=== PATIENT | female | born 1975 | race Caucasian/White ===

== ENCOUNTER 2017-10-09 23:30 | Emergency (ER) | payer MEDICARE, OTHER ==
[2017-10-10] MEDS ORDERED: HALOPERIDOL 5 MG TABLET PO ONE (00:03)
[2017-10-10] MEDS ORDERED: ACETAMINOPHEN 325 MG TABLET PO ONE (00:06)
--- NOTE | 2017-10-10 00:06 | ER Document Report ---
ED General - General Chief Complaint: Anxiety Stated Complaint: ANXIETY ATTACK Time Seen by Provider: 10/09/17 23:34 Notes: Patient is a 41-year-old female with a past medical history of bipolar and depression as well as panic attacks who does present in the custody of police after apparently having a panic attack during the process of her arrest. The patient states that she took alprazolam 2 mg after onset of the panic attack but it has not resolved her symptoms. She states that the symptoms were triggered by the rough nature with which the police detained her. She is complaining of pain to her bilateral upper biceps area where apparently the police grabbed her arms during the arrest. She denies any additional trauma. She states that when she was in the back of the Car she felt suicidal but notes that this feeling has abated at this time. She denies any additional acute medical or traumatic concerns TRAVEL OUTSIDE OF THE [place] IN LAST 30 DAYS: No - Related Data Allergies/Adverse Reactions: codeine [Codeine] Allergy (Verified 08/03/14 04:37) Penicillins Allergy (Verified 08/03/14 04:37) morphine [Morphine] Adverse Reaction (Verified 08/03/14 04:37) Past Medical History - General Information source: Patient - Social History Smoking Status: Never Smoker Frequency of alcohol use: None Drug Abuse: None Lives with: Spouse/Significant other Family History: Reviewed & Not Pertinent, Other - Possible onto and grandmother with DVT Skin Medical History: Denies Hx MRSA Psychiatric Medical History: Reports: Hx Bipolar Disorder, Hx Depression Past Surgical History: Reports: Hx Hysterectomy - Immunizations Hx Diphtheria, Pertussis, Tetanus Vaccination: Yes Review of Systems - Review of Systems Notes: Constitutional: Negative for fever. HENT: Negative for sore throat. Eyes: Negative for visual changes. Cardiovascular: Negative for chest pain. Respiratory: Negative for shortness of breath. Gastrointestinal: Negative for abdominal pain, vomiting or diarrhea. Genitourinary: Negative for dysuria. Musculoskeletal: Negative for back pain. Skin: Negative for rash. Neurological: Negative for headaches, weakness or numbness. 10 point ROS negative except as marked above and in HPI. Physical Exam - Vital signs Vitals: Resp 24 H 10/09/17 23:48 Interpretation: Normal Notes: PHYSICAL EXAMINATION: GENERAL: Anxious, tearful HEAD: Atraumatic, normocephalic. EYES: Pupils equal round and reactive to light, extraocular movements intact, sclera anicteric, conjunctiva are normal. ENT: nares patent, no oral pharyngeal trauma. No hemotympanum, no Mackenzie's sign , no raccoon eyes. NECK: No midline cervical spine tenderness. Patient able to move their head to 45 bilaterally without any discomfort. LUNGS: Breath sounds clear to auscultation bilaterally and equal. No wheezes rales or rhonchi. HEART: Regular rate and rhythm without murmurs. CHEST WALL: No ecchymosis over the chest wall. ABDOMEN: Soft, nontender, normoactive bowel sounds. No guarding, no rebound. No abdominal bruit EXTREMITIES: Normal range of motion, no pitting or edema. No long bone deformities. BACK: No midline spinal tenderness, step-offs, or deformities. NEUROLOGICAL: Face symmetric. Tongue protrudes midline. Extraocular motions intact. Pupils are 2 mm and equally reactive. Normal speech, normal gait. 5 out of 5 strength in both the distal and proximal upper and lower extremities bilaterally. Sensation is grossly intact throughout. Finger to nose testing normal. Pronator drift normal. PSYCH: anxious, tearful SKIN: Warm, Dry, normal turgor, traumatic ecchymosis of the bilateral biceps roughly the area of a hand Course - Re-evaluation Re-evalutation: 10/10/17 00:04 Patient presents with history most consistent with an acute panic attack. The patient admits that these are symptoms identical to prior occasions of panic. There was a clear trigger for tonight's episode. Symptoms were apparently triggered during an arrest which patient was being charged for cyber stalking. She states that these are false construct and claims of people were actually cyber bullying her. She is here with a police captain precinct. Patient does have traumatic erythema which likely become ecchymotic on her bilateral biceps and triceps area where it appears that hands did pull her but the officer does state that the patient was resisting arrest after they placed her in handcuffs and she dropped to the ground. I have explained to the patient that this appears to be a legal matter and then I will be addressing her acute anxiety. Will provide oral haloperidol and Tylenol for the bruising to her arms. Patient does state in the moment of being arrested she felt suicidal but denies ongoing suicidality at this time. I do not suspect an acute pulmonary embolus, ACS, pneumothorax, or any other acute left threatening pathology based on history and exam. I do not believe any labs or imaging are indicated at this time. At this time will discharge with return precautions and follow-up recommendations. Verbal discharge instructions given a the bedside and opportunity for questions given. Medication warnings reviewed. Patient is in agreement with this plan and has verbalized understanding of return precautions and the need for primary care follow-up in the next 24-72 hours. - Vital Signs Vital signs: Temp Pulse Resp BP Pulse Ox 98.5 F 77 18 126/81 H 99 10/09/17 23:51 10/10/17 01:35 10/10/17 01:35 10/10/17 01:35 10/10/17 01:35 Discharge - Discharge Clinical Impression: Panic attack Traumatic ecchymosis of upper arm Qualifiers: Encounter type: initial encounter Laterality: unspecified laterality Qualified Code(s): S40.029A - Contusion of unspecified upper arm, initial encounter Condition: Good Disposition: HOME, SELF-CARE Additional Instructions: You were seen today for a panic attack. Please return if you develop recurrence of your symptoms, thoughts of wanting to harm yourself, or any other symptoms that are concerning to you. Follow-up with your primary doctor or mental health provider regarding today's ED visit. Referrals: LAUREN PERKINS NP [Primary Care Provider] - Follow up as needed
[2017-10-10] MEDS ORDERED: IBUPROFEN 600 MG TABLET PO ONE (00:43)
[2017-10-10 01:36] VITALS: BP 126/81
== END 2017-10-10 01:36 | disposition home or self-care (01) ==
LOC: ER 23:30
DX: F41.0 Panic disorder [episodic paroxysmal anxiety] (principal); S40.022A Contusion of left upper arm, initial encounter; S40.021A Contusion of right upper arm, initial encounter; Y35.893A Legal intervention involving other specified means, suspect injured, initial encounter; M79.622 Pain in left upper arm; M79.621 Pain in right upper arm; Z88.5 Allergy status to narcotic agent; Z88.0 Allergy status to penicillin
CPT/HCPCS: 99283; A9270 ×2

== ENCOUNTER 2017-10-10 02:52 | Emergency (ER) | payer MEDICARE, OTHER ==
[2017-10-10 03:09] VITALS: BP 111/55
== END 2017-10-10 03:05 | disposition left against medical advice (07) ==
LOC: ER 02:52
DX: Z53.21 Procedure and treatment not carried out due to patient leaving prior to being seen by health care provider (principal)

== ENCOUNTER 2017-10-14 14:53 | Emergency (ER) | payer MEDICARE, OTHER ==
--- NOTE | 2017-10-14 16:37 | ER Document Report ---
HPI - HPI Patient complains to provider of: Low back pain, right calf pain Onset: Yesterday Onset/Duration: Gradual Quality of pain: Achy Pain Level: 5 Context: Patient states that she was arrested 6 days ago and pulled from her house. Patient states that she fell on the pavement landing on her bottom and had to sit with her hands restrained behind her back. Patient states initially she did not have any low back pain or calf pain but is concerned that she is having a delayed pain response due to the events. Patient states she has had a lot of anxiety over the issue. Patient states she does have fibromyalgia and chronic pain, but states this pain is more severe than her typical chronic pain. Patient was initially seen in the emergency department after the arrest. Patient denies any recent bed rest or immobilization. Associated Symptoms: Other - Back pain, right calf pain. denies: Nonproductive cough, Productive cough Exacerbated by: Movement, Walking Relieved by: Denies Similar symptoms previously: No Recently seen / treated by doctor: Yes - ROS ROS below otherwise negative: Yes Systems Reviewed and Negative: Yes All other systems reviewed and negative - CONSTITUTIONAL Constitutional: DENIES: Fever - NEURO Neurology: DENIES: Headache, Weakness - CARDIOVASCULAR Cardiovascular: DENIES: Chest pain - RESPIRATORY Respiratory: DENIES: Trouble Breathing, Coughing - GASTROINTESTINAL Gastrointestinal: DENIES: Nausea - REPRODUCTIVE Reproductive: DENIES: : - MUSCULOSKELETAL Musculoskeletal: REPORTS: Extremity pain, Back Pain. DENIES: Swelling - DERM Skin Color: Normal Skin Problems: None Past Medical History - General Information source: Patient - Social History Smoking Status: Never Smoker Chew tobacco use (# tins/day): No Frequency of alcohol use: None Drug Abuse: None Occupation: None Lives with: Spouse/Significant other Family History: Reviewed & Not Pertinent, Other - Possible onto and grandmother with DVT Patient has suicidal ideation: No Patient has homicidal ideation: No Renal/ Medical History: Denies: Hx Peritoneal Dialysis Musculoskeltal Medical History: Reports Hx Fibromyalgia, Reports Other - Chronic pain Skin Medical History: Denies Hx MRSA Psychiatric Medical History: Reports: Hx Anxiety, Hx Bipolar Disorder, Hx Depression, Hx Post Traumatic Stress Disorder Past Surgical History: Reports: Hx Breast Surgery, Hx Hysterectomy - Immunizations Hx Diphtheria, Pertussis, Tetanus Vaccination: Yes Vertical Provider Document - CONSTITUTIONAL Agree With Documented VS: Yes Exam Limitations: No Limitations General Appearance: WD/WN, No Apparent Distress - INFECTION CONTROL TRAVEL OUTSIDE OF THE [place] IN LAST 30 DAYS: No - HEENT HEENT: Atraumatic, Normocephalic - NECK Neck: Other - Bilateral trapezius muscle tenderness - RESPIRATORY Respiratory: Breath Sounds Normal, No Respiratory Distress, Chest Non-Tender O2 Sat by Pulse Oximetry: 100 - CARDIOVASCULAR Cardiovascular: Regular Rate, Regular Rhythm Pulses: Normal: Radial, Posterior tibial, Dorsalis pedis - BACK Back: negative: CVA Tenderness-Right, CVA Tenderness-Left Notes: Patient with diffuse paraspinal tenderness throughout entire back. Lower lumbar tenderness and lumbar paraspinal tenderness, no step-off or deformity - MUSCULOSKELETAL/EXTREMETIES Musculoskeletal/Extremeties: MAEW, FROM, Tender - Left calf tenderness with dorsiflexion and plantar flexion of foot. No edema, normal skin color and temperature, No Edema - NEURO Level of Consciousness: Awake, Alert Motor/Sensory: No Motor Deficit - DERM Integumentary: Warm, Dry, No Rash Course - Re-evaluation Re-evalutation: 10/14/17 Patient with findings concerning for muscle strain and low back pain. Patient not tachycardic or hypoxic, patient PERC negative. Patient does have a history of chronic back pain. No concern for UTI at this time. Discussed worsening signs or symptoms for patient to return. Patient encouraged to follow-up with her primary doctor for further evaluation. - Vital Signs Vital signs: Temp Pulse Resp BP Pulse Ox 98.8 F 61 18 127/83 H 100 10/14/17 15:00 10/14/17 15:00 10/14/17 15:00 10/14/17 15:00 10/14/17 15:00 - Diagnostic Test Radiology reviewed: Reports reviewed Discharge - Discharge Clinical Impression: Muscle strain Low back pain Qualifiers: Chronicity: unspecified Back pain laterality: bilateral Sciatica presence: without sciatica Qualified Code(s): M54.5 - Low back pain Condition: Stable Disposition: HOME, SELF-CARE Instructions: Ice Packs ([facility]), Low Back Pain ([facility]), Muscle Relaxers ([facility]), Muscle Strain ([facility]), Warm Packs ([facility]) Additional Instructions: Return immediately for any new or worsening symptoms Followup with your primary care provider, call tomorrow to make a followup appointment Weightbearing as tolerated Prescriptions: Methocarbamol [Robaxin 500 Mg Tablet] 500 mg PO QID PRN #20 tablet PRN Reason: Naproxen [Naprosyn 250 Nmg Tablet] 1 tab PO BID #14 tablet Referrals: LAUREN PERKINS NP [NO LOCAL MD] - 10/17/17
--- NOTE | 2017-10-14 17:30 | RADIOLOGY REPORT (SQ) ---
EXAM DESCRIPTION: L SPINE WHOLE COMPLETED DATE/TIME: 10/14/2017 5:05 pm REASON FOR STUDY: low back pain COMPARISON: None. NUMBER OF VIEWS: Five views including obliques. TECHNIQUE: AP, lateral, oblique, and sacral radiographic images acquired of the lumbar spine. LIMITATIONS: None. FINDINGS: MINERALIZATION: Normal. SEGMENTATION: Normal. No transitional anatomy. ALIGNMENT: Normal. VERTEBRAE: Maintained height. No fracture or worrisome bone lesion. DISCS: Preserved height. No significant osteophytes or end plate irregularity. POSTERIOR ELEMENTS: Pedicles and facets are intact. No pars defect or posterior arch defects. HARDWARE: None in the spine. PARASPINAL SOFT TISSUES: Normal. PELVIS: Intact as visualized. No fractures or worrisome bone lesions. SI joints intact. OTHER: No other significant finding. IMPRESSION: No acute findings. Age-appropriate exam. TECHNICAL DOCUMENTATION: JOB ID: [id number] [place]-72 2010 [employer]- All Rights Reserved
[2017-10-14] MEDS ORDERED: NAPROXEN 250 MG TABLET PO ONE (17:55)
[2017-10-14 18:09] VITALS: BP 118/76
== END 2017-10-14 18:09 | disposition home or self-care (01) ==
LOC: ER 14:53
DX: S39.012A Strain of muscle, fascia and tendon of lower back, initial encounter (principal); M54.5 Low back pain; M79.604 Pain in right leg; X58.XXXA Exposure to other specified factors, initial encounter
CPT/HCPCS: 99283; 72110; A9270

== ENCOUNTER 2017-10-25 14:07 | Emergency (ER) | payer MEDICARE, OTHER ==
--- NOTE | 2017-10-25 14:37 | ER Document Report ---
ED Medical Screen (RME) - General Chief Complaint: Suicidal Ideation Stated Complaint: SUICIDE IDEATION Time Seen by Provider: 10/25/17 14:29 Mode of Arrival: Ambulatory Information source: Patient Notes: 41 yr old female bipolar disorder presents with complaints of self harm gesture due ot ptsd from being arrested last week I have greeted and performed a rapid initial assessment of this patient. A comprehensive ED assessment and evaluation of the patient, analysis of test results and completion of the medical decision making process will be conducted by additional ED providers. PHYSICAL EXAMINATION: GENERAL: Well-appearing, well-nourished and in no acute distress. HEAD: Atraumatic, normocephalic. EYES: Pupils equal round extraocular movements intact, conjunctiva are normal. ENT: Nares patent NECK: Normal range of motion LUNGS: No respiratory distress Musculoskeletal: Normal range of motion NEUROLOGICAL: Normal speech, normal gait. PSYCH: tearful SKIN: superfiical lac of the right wrist tetanus is up to date TRAVEL OUTSIDE OF THE [place] IN LAST 30 DAYS: No - Related Data Allergies/Adverse Reactions: acetaminophen Allergy (Verified 10/25/17 14:08) black pepper Allergy (Verified 10/25/17 14:08) codeine [Codeine] Allergy (Verified 10/25/17 14:08) Penicillins Allergy (Verified 10/25/17 14:08) morphine [Morphine] Adverse Reaction (Verified 10/25/17 14:08) Home Medications: Current Home Medications Albuterol Sulfate [Proair HFA] 1 puff IH Q4 PRN 10/25/17 [History] Alprazolam 2 mg PO BID 10/25/17 [History] Chlorpromazine HCl [Thorazine 25 Mg Tablet] 50 mg PO DAILY 10/25/17 [History] Chlorpromazine HCl [Thorazine 50 mg Tablet] 100 mg PO HSP 10/25/17 [History] Dextroamphetamine/Amphetamine [Adderall 20 mg Tablet] 1 tab PO DAILY PRN [History] Diclofenac Sodium [Voltaren] 100 gm TP TID 10/25/17 [History] Diphenhydramine HCl [Benadryl] 25 mg PO QID 10/25/17 [History] Past Medical History - Social History Frequency of alcohol use: None Drug Abuse: None Renal/ Medical History: Denies: Hx Peritoneal Dialysis Musculoskeltal Medical History: Reports Hx Fibromyalgia Skin Medical History: Denies Hx MRSA Psychiatric Medical History: Reports: Hx Anxiety, Hx Bipolar Disorder, Hx Depression, Hx Post Traumatic Stress Disorder Past Surgical History: Reports: Hx Breast Surgery, Hx Hysterectomy - Immunizations Hx Diphtheria, Pertussis, Tetanus Vaccination: Yes Physical Exam - Vital signs Vitals: Temp Pulse Resp BP Pulse Ox 99.0 F 86 18 140/83 H 98 10/25/17 14:14 10/25/17 14:14 10/25/17 14:14 10/25/17 14:14 10/25/17 14:14 Course - Vital Signs Vital signs: Temp Pulse Resp BP Pulse Ox 99.0 F 86 18 140/83 H 98 10/25/17 14:14 10/25/17 14:14 10/25/17 14:14 10/25/17 14:14 10/25/17 14:14
--- NOTE | 2017-10-25 14:49 | ER Document Report ---
ED Psych Disorder / Suicide - General Chief Complaint: Suicidal Ideation Stated Complaint: SUICIDE IDEATION Time Seen by Provider: 10/25/17 14:29 Mode of Arrival: Ambulatory Information source: Patient Notes: 41 yo female on line you tubeedwin is being cyberbullied by online followers and a local person who has gotten her arrested for cyberbullying by local police. Spoke with Levi her on line friend. Nunu the local person followed her to [employer] and making false accusations against her. Today, the live stream sent her a screen shot about what they are saying, she tried to ignore it, but she snapped, and she took razor an sliced her wrist horozontally. She is not sure why she cut her wrist, "something in my head wasn' t right". Her spouse will be home at 2 am, he told her to get help. No previous suicide attempts, she has felt suicidal dec. 11 no self harm. Cosmetic surgery , psych hx bipolar 1 (stopped taking latuda)- counselor Marisol Rodriguez. I asked pt if she can unplug and she adamantly states, "No and I won't because it is a business.". Psych here to see the pt. Tetanus is current. TRAVEL OUTSIDE OF THE [place] IN LAST 30 DAYS: No - Related Data Allergies/Adverse Reactions: acetaminophen Allergy (Verified 10/25/17 14:08) black pepper Allergy (Verified 10/25/17 14:08) codeine [Codeine] Allergy (Verified 10/25/17 14:08) Penicillins Allergy (Verified 10/25/17 14:08) morphine [Morphine] Adverse Reaction (Verified 10/25/17 14:08) Home Medications: Current Home Medications Albuterol Sulfate [Proair HFA] 1 puff IH Q4 PRN 10/25/17 [History] Alprazolam 2 mg PO BID 10/25/17 [History] Chlorpromazine HCl [Thorazine 25 Mg Tablet] 50 mg PO DAILY 10/25/17 [History] Chlorpromazine HCl [Thorazine 50 mg Tablet] 100 mg PO HSP 10/25/17 [History] Dextroamphetamine/Amphetamine [Adderall 20 mg Tablet] 1 tab PO DAILY PRN [History] Diclofenac Sodium [Voltaren] 100 gm TP TID 10/25/17 [History] Diphenhydramine HCl [Benadryl] 25 mg PO QID 10/25/17 [History] Past Medical History - General Information source: Patient - Social History Smoking Status: Never Smoker Frequency of alcohol use: None Drug Abuse: None Lives with: Spouse/Significant other Family History: Reviewed & Not Pertinent, Other - grandmother with DVT Patient has suicidal ideation: Yes Patient has homicidal ideation: No Renal/ Medical History: Denies: Hx Peritoneal Dialysis Musculoskeltal Medical History: Reports Hx Fibromyalgia Psychiatric Medical History: Reports: Hx Anxiety, Hx Bipolar Disorder, Hx Depression, Hx Post Traumatic Stress Disorder Past Surgical History: Reports: Hx Breast Surgery, Hx Hysterectomy - Immunizations Hx Diphtheria, Pertussis, Tetanus Vaccination: Yes Review of Systems - Review of Systems Constitutional: No symptoms reported EENT: No symptoms reported Cardiovascular: No symptoms reported Respiratory: No symptoms reported Gastrointestinal: No symptoms reported Genitourinary: No symptoms reported Female Genitourinary: No symptoms reported Musculoskeletal: No symptoms reported Skin: See HPI Hematologic/Lymphatic: No symptoms reported Neurological/Psychological: See HPI Physical Exam - Vital signs Vitals: Temp Pulse Resp BP Pulse Ox 99.0 F 86 18 140/83 H 98 10/25/17 14:14 10/25/17 14:14 10/25/17 14:14 10/25/17 14:14 10/25/17 14:14 Interpretation: Normal - General General appearance: Appears well, Alert - HEENT Head: Normocephalic, Atraumatic Eyes: Normal Pupils: PERRL Mucous membranes: Normal Pharynx: Normal Neck: Supple. No: Lymphadenopathy - Respiratory Respiratory status: No respiratory distress Chest status: Nontender Breath sounds: Normal Chest palpation: Normal - Cardiovascular Rhythm: Regular Heart sounds: Normal auscultation Murmur: No - Abdominal Inspection: Normal Distension: No distension Bowel sounds: Normal Tenderness: Nontender Organomegaly: No organomegaly - Back Back: Normal, Nontender - Extremities General upper extremity: Normal inspection, Nontender, Normal color, Normal ROM , Normal temperature General lower extremity: Normal inspection, Nontender, Normal color, Normal ROM , Normal temperature, Normal weight bearing. No: Stevan's sign Wrist: Tender - partial thickness horozontal cut 2 cm to right volar wrist, no bleeding, FROM, tetanus is current. - Neurological Neuro grossly intact: Yes Cognition: Normal Orientation: AAOx4 [place] Coma Scale Eye Opening: Spontaneous Ulisses Coma Scale Verbal: Oriented [place] Coma Scale Motor: Obeys Commands [place] Coma Scale Total: 15 Speech: Normal Motor strength normal: LUE, RUE, LLE, RLE Sensory: Normal - Psychological Associated symptoms: Normal affect, Normal mood - Skin Skin Temperature: Warm Skin Moisture: Dry Skin Color: Normal Course - Re-evaluation Re-evalutation: 10/25/17 17:20 Dr. Godniez signed IVC paperwork and the patient is agreeable to this plan psych has set forth. Her medications will be started tonight. - Vital Signs Vital signs: Temp Pulse Resp BP Pulse Ox 98.4 F 69 18 139/92 H 99 10/25/17 16:57 10/25/17 16:57 10/25/17 16:57 10/25/17 16:57 10/25/17 16:57 - Laboratory Result Diagrams: 10/25/17 15:02 10/25/17 15:02 Laboratory results interpreted by me: 10/25/17 15:02 Chloride 109 H Salicylates < 1.0 L Acetaminophen < 10 L Discharge - Discharge Clinical Impression: Suicide ideation Suicide gesture Qualifiers: Encounter type: initial encounter Qualified Code(s): X83.8XXA - Intentional self-harm by other specified means, initial encounter Condition: Good Disposition: PSYCH HOSP/UNIT
[2017-10-25 15:12] LABS: ABSOLUTE EOSINOPHILS # (AUTO) 0.2 10^3/uL (0.0-0.6); ABSOLUTE LYMPHOCYTES (AUTO) 2.2 10^3/uL (0.5-4.7); ABSOLUTE MONOCYTES (AUTO) 0.3 10^3/uL (0.1-1.4); ABSOLUTE NEUT (AUTO) 3.4 10^3/uL (1.7-8.2); BASOPHILS % (AUTO) 0.6 % (0-2); EOSINOPHILS % (AUTO) 3.1 % (0-6); HEMATOCRIT 41.4 % (36.0-47.0); HEMOGLOBIN 14.1 g/dL (12.0-15.5); LYMPHOCYTES % (AUTO) 35.7 % (13-45); MEAN CORPUSCULAR HEMOGLOBIN 31.3 pg (27.0-33.4); MEAN CORPUSCULAR VOLUME 92 fl (80-97); MONOCYTES % (AUTO) 5.5 % (3-13); PLATELET COUNT 255 10^3/uL (150-450); RED BLOOD COUNT 4.49 10^6/uL (3.72-5.28); RED CELL DISTRIBUTION WIDTH 12.7 % (11.5-14.0); SEGMENTED NEUTROPHILS % (AUTO) 55.1 % (42-78); TOTAL CELLS COUNTED % (AUTO) 100 %; WHITE BLOOD COUNT 6.2 10^3/uL (4.0-10.5)
[2017-10-25 15:20] LABS: APPEARANCE,URINE SLIGHTLY-CLOUDY; BILIRUBIN,URINE NEGATIVE (NEGATIVE); COLOR,URINE YELLOW; GLUCOSE, URINE NEGATIVE (NEGATIVE); KETONES,URINE NEGATIVE (NEGATIVE); LEUKOCYTE ESTERASE,URINE NEGATIVE (NEGATIVE); NITRITE,URINE NEGATIVE (NEGATIVE); PROTEIN,URINE NEGATIVE (NEGATIVE); URINE SPECIFIC GRAVITY 1.019; UROBILINOGEN,URINE NEGATIVE mg/dL (<2.0)
[2017-10-25 15:31] LABS: URINE AMPHETAMINES SCREEN NEGATIVE; URINE BARBITURATES SCREEN NEGATIVE; URINE BENZODIAZEPINES SCREEN UNCONFIRMED POSITIVE; URINE COCAINE SCREEN NEGATIVE; URINE MARIJUANA (THC) SCREEN NEGATIVE; URINE METHADONE SCREEN NEGATIVE; URINE PHENCYCLIDINE SCREEN NEGATIVE
[2017-10-25 15:36] LABS: ALANINE AMINOTRANSFERASE 36 U/L (9-52); ALBUMIN 4.2 g/dL (3.5-5.0); ALKALINE PHOSPHATASE 66 U/L (38-126); ANION GAP 10 (5-19); ASPARTATE AMINO TRANSFERASE 29 U/L (14-36); BILIRUBIN,DIRECT 0.2 mg/dL (0.0-0.4); BILIRUBIN,TOTAL 0.3 mg/dL (0.2-1.3); BLOOD UREA NITROGEN 15 mg/dL (7-20); CALCIUM 9.4 mg/dL (8.4-10.2); CARBON DIOXIDE 24 mmol/L (22-30); CHLORIDE 109 mmol/L (98-107); GLUCOSE 88 mg/dL (75-110); POTASSIUM 3.9 mmol/L (3.6-5.0); SODIUM 143.2 mmol/L (137-145); TOTAL PROTEIN 7.1 g/dL (6.3-8.2)
[2017-10-25 15:37] LABS: ACETAMINOPHEN < 10 ug/mL (10-30); ALCOHOL < 10 mg/dL (NONE DETECTED); SALICYLATE < 1.0 mg/dL (2.0-20.0)
[2017-10-25] MEDS ORDERED: CHLORPROMAZINE HCL 50 MG TABLET PO PRN (17:15)
[2017-10-25] MEDS ORDERED: OLANZAPINE 5 MG TABLET PO ONE (17:17)
[2017-10-25] MEDS: OLANZAPINE 5 MG TABLET PO SCH (17:28)
[2017-10-25] MEDS ORDERED: BENZTROPINE MESYLATE 1 MG TABLET PO SCH (17:30)
[2017-10-25] MEDS ORDERED: BENZTROPINE MESYLATE 1 MG TABLET PO ONE (18:00)
--- NOTE | 2017-10-25 20:31 | EKG REPORT ---
SEVERITY:- NORMAL ECG - SINUS RHYTHM : Confirmed by: Ileana Lees MD 25-Oct-2017 20:30:40
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
[2017-10-25] MEDS ORDERED: CLONIDINE HCL 0.1 MG TABLET PO SCH (22:00)
[2017-10-26 07:37] VITALS: BP 114/66
--- NOTE | 2017-10-26 09:19 | PSYCHOLOGICAL NOTE ---
Psych Note - Psych Note Psych Note: Reason for Consult: Suicidal Idea, Self Harming behavior Consents given: Martinez , Patient is a 41-year old female who presented at the Emergency Department with a self inflicted cut on her wrist and suicidal ideation. Patient was re- evaluated by this provider. Patient stated she slept all night and felt like the medication change helped her get a restful night's sleep. Patient stated she is feeling better and clearer this morning. She stated she feels like she was in an overwhelming situation and did not react to it appropriately. She reported it has been really hard with the online bullying becoming real life bullying but that she is going to "face what I have to face." She indicated she feels safe with her home and "reaching out and asking for help was the best thing to do." Patient was alert and oriented to person, place, time and circumstance. Mood was bright and happy with congruent affect. Patient denied suicidal/homicidal ideation, intent or plan. She did not appear to be responding to internal stimuli as evidenced by maintaining eye contact, staying on topic and answering questions appropriately when asked. Thought processes were rational, organized and linear. Conversational speech was within normal limits for rate, tone and prosody. Intellectual abilities were estimated to be in the average range. Insight, judgment and impulse control were fair. Patient was observed to be smiling and engaged appropriately with this provider. 1. 296.42 (F31.12) Bipolar I Disorder, Moderate, manic 2. R/O Borderline Personality Disorder 3. V62.81 (Z65.8) Other specified problems related to psychosocial circumstances (Interpersonal problems) Plan/Impression: Recommendation to rescind IVC. Patient no longer meets [place] G.S 122C IVC Criteria. She denied suicidal/homicidal ideation, intent and plan. Patient is no longer a threat to herself. Patient is demonstrating bright mood with congruent affect. No psychosis observed. Patient was started on a new medication regimen and stated she is tolerating the medication changes. Outpatient services and Mobile Crisis referrals and resources were provided to the patient. Mobile Crisis numbers and the patient's current provider were highlighted for easy reference on the referral sheet. Dr. Gerard was consulted in the care and management of this patient. ED physician in agreement with recommendation and disposition.
[2017-10-26] MEDS ORDERED: BENZTROPINE MESYLATE 1 MG TABLET PO SCH (10:00)
[2017-10-26] MEDS: OLANZAPINE 5 MG TABLET PO SCH (10:01)
--- NOTE | 2017-10-26 11:48 | ER Document Report ---
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 At present patient is quite comfortable going home, feels better on her medications, we will give her 2 week prescription for Cogentin, Zyprexa and clonidine. is at bedside and ready to take her home. Referred to integrative family services.
== END 2017-10-26 12:07 | disposition home or self-care (01) ==
LOC: ER 14:07
DX: S61.519A Laceration without foreign body of unspecified wrist, initial encounter (principal); F31.9 Bipolar disorder, unspecified; X83.8XXA Intentional self-harm by other specified means, initial encounter
CPT/HCPCS: 93005; 99285; 36415; 87086; 80307 ×4; 84703; 85025; 80053; 81001; 93010; A9270 ×4

== ENCOUNTER 2018-03-13 19:01 | Emergency (ER) | payer MEDICARE, OTHER ==
[2018-03-13 19:20] VITALS: BP 123/79
[2018-03-13] MEDS ORDERED: NORMAL SALINE 1000 ML 1,000 ML IV ONE (21:22)
--- NOTE | 2018-03-13 21:25 | ER Document Report ---
ED Headache - General Chief Complaint: Headache Stated Complaint: HEADACHE Time Seen by Provider: 03/13/18 20:40 Mode of Arrival: Ambulatory Information source: Patient TRAVEL OUTSIDE OF THE U.S[place] IN LAST 30 DAYS: No - HPI Patient complains to provider of: Headache Notes: Patient is here with multiple unrelated complaints. She states that 4 days ago she had a sudden onset severe headache that lasted just a few seconds in her upper head going to the back of her head. She states that the headache then resolved that she has had some intermittent twinges of pain in her head since that time. She states that she is also having some intermittent spasms in her right flank and right upper abdomen. She denies any pain currently. She feels like her urine has been darker than normal. States that she feels like he is dehydrated because she has not been drinking very much fluids over the last 36 hours she worked outside in the heat all day today. She denies any unilateral numbness, tingling, weakness. She was also concerned she felt like she had a film over her eyes. She does wear contacts. No vomiting but she has had some nausea. No rash. No chest pain or shortness of breath. No injury. No other complaints. She is not on any blood thinning medications. - Related Data Allergies/Adverse Reactions: acetaminophen Allergy (Verified 10/25/17 14:08) black pepper Allergy (Verified 10/25/17 14:08) codeine [Codeine] Allergy (Verified 10/25/17 14:08) Penicillins Allergy (Verified 10/25/17 14:08) morphine [Morphine] Adverse Reaction (Verified 10/25/17 14:08) Past Medical History - Social History Smoking Status: Never Smoker Chew tobacco use (# tins/day): No Frequency of alcohol use: None Drug Abuse: None Family History: Reviewed & Not Pertinent, Other - grandmother with DVT Patient has suicidal ideation: No Patient has homicidal ideation: No Renal/ Medical History: Denies: Hx Peritoneal Dialysis Musculoskeltal Medical History: Reports Hx Fibromyalgia Skin Medical History: Denies Hx MRSA Psychiatric Medical History: Reports: Hx Anxiety, Hx Bipolar Disorder, Hx Depression, Hx Post Traumatic Stress Disorder Past Surgical History: Reports: Hx Breast Surgery, Hx Hysterectomy - Immunizations Hx Diphtheria, Pertussis, Tetanus Vaccination: Yes Review of Systems - Review of Systems -: Yes All other systems reviewed and negative Physical Exam - Vital signs Vitals: Temp Pulse Resp BP Pulse Ox 98.4 F 86 18 123/79 96 03/13/18 19:18 03/13/18 19:18 03/13/18 19:18 03/13/18 19:18 03/13/18 19:18 - Notes Notes: GENERAL: alert, cooperative, nontoxic, no distress. HEAD: normocephalic, atraumatic EYES: conjunctiva pink without discharge, no external redness or swelling. Pupils are equal, round, reactive to light. Stain of both eyes with Palma lamp shows a small superficial corneal abrasion to the left cornea. No corneal abrasion to the right. There is no scleral icterus. No dendritic lesions. Negative Radha sign. No surrounding redness. EARS: no external swelling, no external redness NOSE: atraumatic, no external swelling MOUTH/THROAT: mucous membranes moist and pink, posterior pharynx without erythema, swelling, exudate. No trismus or drooling. NECK: soft, supple, full range of motion, no meningismus. CHEST: no distress, lungs clear and equal throughout. No wheezing, rales, rhonchi. CARDIAC: regular rate and rhythm, no murmur, normal capillary refill, normal pulses. No peripheral edema noted. BACK: full range of motion, no CVA tenderness. ABDO: No abdominal tenderness on exam. Soft. No hepatosplenomegaly. No mass. No rebound tenderness or guarding. EXTREMITIES: full range of motion of all extremities. No redness, no swelling. NEURO: alert and oriented x 3, cranial nerves II through XII are grossly intact. Upper and lower extremities are equal throughout. Normal sensation. No focal deficits, full range of motion of all extremities. normal finger to nose. PYSCH: appropriate mood, affect. Patient is cooperative. SKIN: pink, warm, dry, no rash. Course - Re-evaluation Re-evalutation: 03/13/18 22:52 Patient is here with nontoxic vitals and nontoxic appearance. She has multiple unrelated complaints. She had a headache 4 days ago that has since resolved. Complaining of a yellow film on her eyes and some blurred vision. She does complain of some muscle spasms in her back and right abdomen. She has no abdominal tenderness on exam at this time. She is a nonfocal neurological exam at this time. No neck stiffness or signs of meningitis. No blood thinners. I exam shows a corneal abrasion to the left eye with no dendritic lesions. Urinalysis and lab work are all unremarkable for acute findings. Liver function tests are all normal. The patient was given IV fluids and is feeling somewhat better at this time. This point the patient will be discharged home with a prescription for Ciloxan eyedrops. Instructions to follow-up with her eye doctor as scheduled on Tuesday. Drink plenty fluids. Motrin as needed for pain. Follow-up sooner for worsening pain, fever, numbness, tingling, weakness , any further concerns. The patient is noted to have elevated blood pressure during today's emergency department visit. The patient was informed of this finding. The patient was instructed that this may be related to pre-hypertension and requires further evaluation with a primary care provider. The patient has no hypertensive symptoms at this time. The patient's emergency department workup and current diagnosis were explained to the patient and or family. Follow-up instructions were provided. Medications if prescribed were discussed. Instructions for when to return to the emergency department including specific worrisome symptoms were discussed with the patient and/or family. - Vital Signs Vital signs: Temp Pulse Resp BP Pulse Ox 98.4 F 86 18 123/79 96 03/13/18 19:18 03/13/18 19:18 03/13/18 19:18 03/13/18 19:18 03/13/18 19:18 - Laboratory Result Diagrams: 03/13/18 20:59 03/13/18 20:59 Laboratory results interpreted by me: 03/13/18 20:59 Seg Neutrophils % 37.7 L Lymphocytes % 51.3 H - Diagnostic Test Radiology reviewed: Image reviewed, Reports reviewed - Head CT negative Discharge - Discharge Clinical Impression: Headache Qualifiers: Headache type: unspecified Headache chronicity pattern: acute headache Intractability: not intractable Qualified Code(s): R51 - Headache Corneal abrasion Qualifiers: Encounter type: initial encounter Laterality: left Qualified Code(s): S05.02XA - Injury of conjunctiva and corneal abrasion without foreign body, left eye, initial encounter Abdominal pain Qualifiers: Abdominal location: right upper quadrant Qualified Code(s): R10.11 - Right upper quadrant pain Condition: Stable Disposition: HOME, SELF-CARE Instructions: Abdominal Pain ([facility]), Corneal Abrasion ([facility]), Headache ([facility]) Additional Instructions: Take medications as prescribed. Do not wear your contacts until you follow-up with your eye doctor. Motrin as needed for pain. Drink plenty fluids. Follow- up sooner for worsening symptoms, high fever, blurred or loss vision, numbness, tingling, weakness, severe abdominal pain, persistent vomiting, or for any further concerns. Your blood pressure was elevated during today's visit. Have this rechecked with your doctor. Prescriptions: Ciprofloxacin HCl [Ciloxan 0.3% Oph Soln 2.5 ml] 1 drop OP Q4H 7 Days #1 bottle Forms: Elevated Blood Pressure, Smoking Cessation Education Referrals: ABBI MEJÍA MD [Primary Care Provider] - Follow up as needed JEYSON BISWAS DO [ACTIVE STAFF] - Follow up as needed
[2018-03-13 21:33] LABS: ABSOLUTE EOSINOPHILS # (AUTO) 0.2 10^3/uL (0.0-0.6); ABSOLUTE MONOCYTES (AUTO) 0.4 10^3/uL (0.1-1.4); ABSOLUTE NEUT (AUTO) 2.2 10^3/uL (1.7-8.2); BASOPHILS % (AUTO) 0.4 % (0-2); EOSINOPHILS % (AUTO) 3.6 % (0-6); HEMOGLOBIN 13.9 g/dL (12.0-15.5); LYMPHOCYTES % (AUTO) 51.3 % (13-45); MEAN CORPUSCULAR HEMOGLOBIN 31.2 pg (27.0-33.4); MEAN CORPUSCULAR VOLUME 92 fl (80-97); PLATELET COUNT 337 10^3/uL (150-450); RED BLOOD COUNT 4.47 10^6/uL (3.72-5.28); SEGMENTED NEUTROPHILS % (AUTO) 37.7 % (42-78); TOTAL CELLS COUNTED % (AUTO) 100 %; WHITE BLOOD COUNT 5.9 10^3/uL (4.0-10.5)
[2018-03-13 21:35] LABS: ALANINE AMINOTRANSFERASE 51 U/L (9-52); ALBUMIN 4.2 g/dL (3.5-5.0); ALKALINE PHOSPHATASE 64 U/L (38-126); ANION GAP 13 (5-19); ASPARTATE AMINO TRANSFERASE 34 U/L (14-36); BILIRUBIN,DIRECT 0.3 mg/dL (0.0-0.4); BILIRUBIN,TOTAL 0.6 mg/dL (0.2-1.3); BLOOD UREA NITROGEN 14 mg/dL (7-20); CALCIUM 9.9 mg/dL (8.4-10.2); CARBON DIOXIDE 30 mmol/L (22-30); CHLORIDE 101 mmol/L (98-107); GLUCOSE 89 mg/dL (75-110); LIPASE 50.9 U/L (23-300); POTASSIUM 4.2 mmol/L (3.6-5.0); SODIUM 144.4 mmol/L (137-145); TOTAL PROTEIN 7.3 g/dL (6.3-8.2)
--- NOTE | 2018-03-13 22:27 | RADIOLOGY REPORT (SQ) ---
EXAM DESCRIPTION: CT HEAD WITHOUT COMPLETED DATE/TIME: 03/13/2018 9:58 pm REASON FOR STUDY: headache COMPARISON: None. TECHNIQUE: Axial images acquired through the brain without intravenous contrast. Images reviewed wi th bone, brain and subdural windows. Additional sagittal and coronal reconstructions were generated. Images stored on PACS. All CT scanners at this facility use dose modulation, iterative reconstruction, and/or weight based d osing when appropriate to reduce radiation dose to as low as reasonably achievable (ALARA). [facility]: Dose Right [facility]: CareDose [facility]: Dose Right [facility]: Teradose 4D [facility]: [employer] RADIATION DOSE: mGy. LIMITATIONS: None. FINDINGS: VENTRICLES: Normal size and contour. CEREBRUM: No masses. No hemorrhage. No midline shift. No evidence for acute infarction. Normal gra y/white matter differentiation. No areas of low density in the white matter. CEREBELLUM: No masses. No hemorrhage. No alteration of density. No evidence for acute infarction. EXTRAAXIAL SPACES: No fluid collections. No masses. ORBITS AND GLOBE: No intra- or extraconal masses. Normal contour of globe without masses. CALVARIUM: No fracture. PARANASAL SINUSES: No fluid or mucosal thickening. SOFT TISSUES: No mass or hematoma. OTHER: No other significant finding. IMPRESSION: NORMAL BRAIN CT WITHOUT CONTRAST. EVIDENCE OF ACUTE STROKE: NO. COMMENT: Quality ID # [id number]: Final reports with documentation of one or more dose reduction techniques (e.g., Automated exposure control, adjustment of the mA and/or kV according to patient size, use of iterative reconstruction technique) TECHNICAL DOCUMENTATION: JOB ID: [id number] [employer]- All Rights Reserved Reading location - IP/workstation name: [email or web address]
[2018-03-13 22:45] LABS: APPEARANCE,URINE CLEAR; BILIRUBIN,URINE NEGATIVE (NEGATIVE); COLOR,URINE STRAW; GLUCOSE, URINE NEGATIVE (NEGATIVE); KETONES,URINE NEGATIVE (NEGATIVE); LEUKOCYTE ESTERASE,URINE NEGATIVE (NEGATIVE); NITRITE,URINE NEGATIVE (NEGATIVE); PROTEIN,URINE NEGATIVE (NEGATIVE); URINE SPECIFIC GRAVITY 1.006; UROBILINOGEN,URINE NEGATIVE mg/dL (<2.0)
== END 2018-03-14 00:01 | disposition home or self-care (01) ==
LOC: ER 19:01
DX: R51 Headache (principal); S05.02XA Injury of conjunctiva and corneal abrasion without foreign body, left eye, initial encounter; X58.XXXA Exposure to other specified factors, initial encounter; R10.11 Right upper quadrant pain; R11.0 Nausea; R03.0 Elevated blood-pressure reading, without diagnosis of hypertension; M62.830 Muscle spasm of back; Z88.6 Allergy status to analgesic agent; Z91.018 Allergy to other foods; Z88.5 Allergy status to narcotic agent; Z88.0 Allergy status to penicillin
CPT/HCPCS: 99284; 96360; 36415; 83690; 85025; 80053; 81001; 70450; J7030

== ENCOUNTER 2018-06-05 12:52 | Emergency (ER) | payer MEDICARE, OTHER ==
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
[2018-06-05 14:36] LABS: ABSOLUTE LYMPHOCYTES (AUTO) 1.2 10^3/uL (0.5-4.7); ABSOLUTE MONOCYTES (AUTO) 0.4 10^3/uL (0.1-1.4); ABSOLUTE NEUT (AUTO) 7.4 10^3/uL (1.7-8.2); BASOPHILS % (AUTO) 0.2 % (0-2); EOSINOPHILS % (AUTO) 0.2 % (0-6); HEMATOCRIT 41.6 % (36.0-47.0); HEMOGLOBIN 14.3 g/dL (12.0-15.5); MEAN CORPUSCULAR HEMOGLOBIN 31.8 pg (27.0-33.4); MEAN CORPUSCULAR HGB CONC 34.4 g/dL (32.0-36.0); MEAN CORPUSCULAR VOLUME 92 fl (80-97); MONOCYTES % (AUTO) 4.7 % (3-13); PLATELET COUNT 276 10^3/uL (150-450); RED BLOOD COUNT 4.51 10^6/uL (3.72-5.28); RED CELL DISTRIBUTION WIDTH 13.1 % (11.5-14.0); SEGMENTED NEUTROPHILS % (AUTO) 81.9 % (42-78); TOTAL CELLS COUNTED % (AUTO) 100 %
--- NOTE | 2018-06-05 15:27 | RADIOLOGY REPORT (SQ) ---
EXAM DESCRIPTION: CT HEAD WITHOUT COMPLETED DATE/TIME: 06/05/2018 3:13 pm REASON FOR STUDY: Convulsion COMPARISON: 03/13/2018 TECHNIQUE: Axial images acquired through the brain without intravenous contrast. Images reviewed wi th bone, brain and subdural windows. Additional sagittal and coronal reconstructions were generated. Images stored on PACS. All CT scanners at this facility use dose modulation, iterative reconstruction, and/or weight based d osing when appropriate to reduce radiation dose to as low as reasonably achievable (ALARA). [facility]: Dose Right [facility]: CareDose [facility]: Dose Right [facility]: Teradose 4D [facility]: [employer] RADIATION DOSE: CT Rad equipment meets quality standard of care and radiation dose reduction techniq ues were employed. CTDIvol: 53.2 mGy. DLP: 1070 mGy-cm. mGy. LIMITATIONS: None. FINDINGS: VENTRICLES: Normal size and contour. CEREBRUM: No masses. No hemorrhage. No midline shift. No evidence for acute infarction. Normal gra y/white matter differentiation. No areas of low density in the white matter. CEREBELLUM: No masses. No hemorrhage. No alteration of density. No evidence for acute infarction. EXTRAAXIAL SPACES: No fluid collections. No masses. ORBITS AND GLOBE: No intra- or extraconal masses. Normal contour of globe without masses. CALVARIUM: No fracture. PARANASAL SINUSES: No fluid or mucosal thickening. SOFT TISSUES: No mass or hematoma. OTHER: No other significant finding. IMPRESSION: NORMAL BRAIN CT WITHOUT CONTRAST. EVIDENCE OF ACUTE STROKE: NO. COMMENT: Quality ID # [id number]: Final reports with documentation of one or more dose reduction techniques (e.g., Automated exposure control, adjustment of the mA and/or kV according to patient size, use of iterative reconstruction technique) TECHNICAL DOCUMENTATION: JOB ID: [id number] [employer]- All Rights Reserved Reading location - IP/workstation name: [email or web address]
[2018-06-05 15:28] LABS: ALANINE AMINOTRANSFERASE 28 U/L (9-52); ALBUMIN 4.5 g/dL (3.5-5.0); ALKALINE PHOSPHATASE 52 U/L (38-126); ANION GAP 13 (5-19); ASPARTATE AMINO TRANSFERASE 28 U/L (14-36); BILIRUBIN,DIRECT 0.2 mg/dL (0.0-0.4); BILIRUBIN,TOTAL 0.6 mg/dL (0.2-1.3); BLOOD UREA NITROGEN 14 mg/dL (7-20); CALCIUM 9.3 mg/dL (8.4-10.2); CARBON DIOXIDE 27 mmol/L (22-30); CHLORIDE 104 mmol/L (98-107); GLUCOSE 94 mg/dL (75-110); POTASSIUM 4.4 mmol/L (3.6-5.0); SODIUM 143.6 mmol/L (137-145); TOTAL PROTEIN 7.6 g/dL (6.3-8.2)
[2018-06-05 15:29] LABS: ALCOHOL < 10 mg/dL (NONE DETECTED)
--- NOTE | 2018-06-05 19:34 | ER Document Report ---
ED Seizure <VENITA PEREZ - Last Filed: 06/05/18 19:37> - General Mode of Arrival: Ambulatory Information source: Patient <RODOLFO SEGAL - Last Filed: 06/05/18 20:55> - General Chief Complaint: Anxiety Stated Complaint: POSSIBLE ANXIETY Time Seen by Provider: 06/05/18 13:33 Notes: Patient is a 42-year-old female who presents to the emergency department today with complaints of a possible seizure prior to arrival. Patient states that she has never been formally diagnosed with seizures but she has had seizures in the past all related to anxiety. Patient states she "has PTSD" and something today "triggered it" today and caused her to become anxious. Significant other at bedside mentions that the patient had a four-minute seizure today. states the patient was shaking, she had slight foaming at the mouth, and a state of postictal confusion. (RODOLFO SEGAL) - Related Data Allergies/Adverse Reactions: acetaminophen Allergy (Verified 06/05/18 12:56) black pepper Allergy (Verified 06/05/18 12:56) codeine [Codeine] Allergy (Verified 06/05/18 12:56) Penicillins Allergy (Verified 06/05/18 12:56) morphine [Morphine] Adverse Reaction (Verified 06/05/18 12:56) Past Medical History - General Information source: Patient - Social History Smoking Status: Never Smoker Chew tobacco use (# tins/day): No Frequency of alcohol use: None Drug Abuse: None Family History: Reviewed & Not Pertinent, Other - grandmother with DVT Patient has suicidal ideation: No Patient has homicidal ideation: No Renal/ Medical History: Denies: Hx Peritoneal Dialysis Musculoskeletal Medical History: Reports Hx Fibromyalgia Skin Medical History: Denies Hx MRSA Psychiatric Medical History: Reports: Hx Anxiety, Hx Bipolar Disorder, Hx Depression, Hx Post Traumatic Stress Disorder Past Surgical History: Reports: Hx Breast Surgery, Hx Hysterectomy - Immunizations Hx Diphtheria, Pertussis, Tetanus Vaccination: Yes <PHILIPP,RODOLFO - Last Filed: 06/05/18 20:55> Review of Systems - Review of Systems Constitutional: No symptoms reported EENT: No symptoms reported Cardiovascular: No symptoms reported Respiratory: No symptoms reported Gastrointestinal: No symptoms reported Genitourinary: No symptoms reported Female Genitourinary: No symptoms reported Musculoskeletal: No symptoms reported Skin: No symptoms reported Hematologic/Lymphatic: No symptoms reported Neurological/Psychological: See HPI, Anxiety, Seizure -: Yes All other systems reviewed and negative <RODOLFO SEGAL - Last Filed: 06/05/18 20:55> Physical Exam <VENITA PEREZ - Last Filed: 06/05/18 19:37> <RODOLFO SEGAL - Last Filed: 06/05/18 20:55> - Vital signs Vitals: Temp Pulse Resp BP Pulse Ox 98.3 F 92 16 118/71 98 06/05/18 13:15 06/05/18 13:15 06/05/18 13:15 06/05/18 13:15 06/05/18 13:15 - Notes Notes: Physical Exam: General: Alert, appears well. HEENT: Normocephalic. Atraumatic. PERRL. Extraocular movements intact. Oropharynx clear. No tongue laceration. Neck: Supple. Non-tender. Respiratory: No respiratory distress. Clear and equal breath sounds bilaterally. Cardiovascular: Regular rate and rhythm. Abdominal: Normal Inspection. Non-tender. No distension. Normal Bowel Sounds. Back: Non-tender. No deformity or step off. Extremities: Moves all four extremities. Upper extremities: Normal inspection. Normal ROM. Lower extremities: Normal inspection. No edema. Normal ROM. Neurological: Normal cognition. AAOx4. Normal speech. Psychological: Appears slightly anxious. Skin: Warm. Dry. Normal color. (RODOLFO SEGAL) Course - Laboratory Result Diagrams: 06/05/18 14:22 06/05/18 14:22 - Diagnostic Test Radiology reviewed: Reports reviewed - CT scan of the head is unremarkable. <VENITA PEREZ - Last Filed: 06/05/18 19:37> - Laboratory Result Diagrams: 06/05/18 14:22 06/05/18 14:22 <RODOLFO SEGAL - Last Filed: 06/05/18 20:55> - Vital Signs Vital signs: Temp Pulse Resp BP Pulse Ox 98.3 F 75 16 116/71 99 06/05/18 13:15 06/05/18 19:53 06/05/18 19:53 06/05/18 19:53 06/05/18 19:53 - Laboratory Laboratory results interpreted by me: 06/05/18 14:22 Seg Neutrophils % 81.9 H Discharge <VENITA PEREZ - Last Filed: 06/05/18 19:37> <RODOLFO SEGAL - Last Filed: 06/05/18 20:55> - Discharge Clinical Impression: Witnessed seizure-like activity Condition: Stable Disposition: HOME, SELF-CARE Additional Instructions: Seizure: You may have had a seizure. Seizure disorders (epilepsy) of one sort or another affect about one out of 50 people. The seizure occurs because of abnormal electrical activity in the brain. Seizures may be due to drugs and alcohol, strokes, brain injury, or infection. In the most common form of epilepsy, no cause can be found. You will require further evaluation to determine the cause of your seizure, and to determine whether anti-seizure medication is required. This follow-up testing is important, so please call us if you encounter problems with scheduling of tests or appointments. YOU SHOULD NOT DRIVE until released to do so by your physician. The law requires that seizures be reported to the [place] driver's license bureau--a seizure while driving could be catastrophic. Call the doctor if seizures recur, or if you develop new symptoms such as fever, severe headache, stiff neck, confusion or increasing sleepiness, weakness or numbness, or visual problems. Call [facility] for a follow-up appointment, or see your primary care provider for neurology referral. RETURN TO THE EMERGENCY ROOM IF ANY NEW OR WORSENING SYMPTOMS. Referrals: [facility] [Provider Group] - Follow up in 1 week (Call for appointment.) Scribe Attestation: 06/05/18 19:37 I personally performed the services described in the documentation, reviewed and edited the documentation which was dictated to the scribe in my presence, and it accurately records my words and actions. (VENITA PEREZ) Scribe Documentation - Scribe Written by David:: David Eduardo, 06/05/[id number] acting as scribe for :: Soy <RODOLFO SEGAL - Last Filed: 06/05/18 20:55>
[2018-06-05 19:56] VITALS: BP 116/71
== END 2018-06-05 19:58 | disposition home or self-care (01) ==
LOC: ER 12:52
DX: R56.9 Unspecified convulsions (principal); F41.9 Anxiety disorder, unspecified; Z90.710 Acquired absence of both cervix and uterus; Z88.6 Allergy status to analgesic agent; Z88.0 Allergy status to penicillin
CPT/HCPCS: 36415; 70450; 80053; 80307; 82962; 83735; 85025; 99284

== ENCOUNTER 2019-04-10 11:18 | Emergency (ER) | payer MEDICARE, OTHER ==
[2019-04-10 11:33] VITALS: BP 114/63
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
[2019-04-10 12:27] LABS: ABSOLUTE LYMPHOCYTES (AUTO) 1.7 10^3/uL (0.5-4.7); ABSOLUTE MONOCYTES (AUTO) 0.3 10^3/uL (0.1-1.4); BASOPHILS % (AUTO) 0.5 % (0-2); EOSINOPHILS % (AUTO) 0.5 % (0-6); HEMATOCRIT 41.4 % (36.0-47.0); HEMOGLOBIN 14.2 g/dL (12.0-15.5); LYMPHOCYTES % (AUTO) 33.9 % (13-45); MEAN CORPUSCULAR HEMOGLOBIN 31.7 pg (27.0-33.4); MEAN CORPUSCULAR HGB CONC 34.3 g/dL (32.0-36.0); MEAN CORPUSCULAR VOLUME 92 fl (80-97); MONOCYTES % (AUTO) 5.8 % (3-13); PLATELET COUNT 291 10^3/uL (150-450); RED BLOOD COUNT 4.49 10^6/uL (3.72-5.28); RED CELL DISTRIBUTION WIDTH 12.7 % (11.5-14.0); SEGMENTED NEUTROPHILS % (AUTO) 59.3 % (42-78); TOTAL CELLS COUNTED % (AUTO) 100 %
--- NOTE | 2019-04-10 12:30 | RADIOLOGY REPORT (SQ) ---
EXAM DESCRIPTION: CT HEAD WITHOUT COMPLETED DATE/TIME: 04/10/2019 12:19 pm REASON FOR STUDY: syncope, head injury COMPARISON: 06/05/2018 TECHNIQUE: Axial images acquired through the brain without intravenous contrast. Images reviewed wi th bone, brain and subdural windows. Additional sagittal and coronal reconstructions were generated. Images stored on PACS. All CT scanners at this facility use dose modulation, iterative reconstruction, and/or weight based d osing when appropriate to reduce radiation dose to as low as reasonably achievable (ALARA). [facility]: Dose Right [facility]: CareDose [facility]: Dose Right [facility]: Teradose 4D [facility]: Smart [employer] RADIATION DOSE: CT Rad equipment meets quality standard of care and radiation dose reduction techniq ues were employed. CTDIvol: 53.2 mGy. DLP: 1017 mGy-cm. mGy. LIMITATIONS: None. FINDINGS: VENTRICLES: Normal size and contour. CEREBRUM: No masses. No hemorrhage. No midline shift. No evidence for acute infarction. Normal gra y/white matter differentiation. No areas of low density in the white matter. CEREBELLUM: No masses. No hemorrhage. No alteration of density. No evidence for acute infarction. EXTRAAXIAL SPACES: No fluid collections. No masses. ORBITS AND GLOBE: No intra- or extraconal masses. Normal contour of globe without masses. CALVARIUM: No fracture. PARANASAL SINUSES: No fluid or mucosal thickening. SOFT TISSUES: No mass or hematoma. OTHER: No other significant finding. IMPRESSION: No acute intracranial pathology. EVIDENCE OF ACUTE STROKE: NO. COMMENT: Quality ID # [id number]: Final reports with documentation of one or more dose reduction techniques (e.g., Automated exposure control, adjustment of the mA and/or kV according to patient size, use of iterative reconstruction technique) TECHNICAL DOCUMENTATION: JOB ID: [id number] [employer]- All Rights Reserved Reading location - IP/workstation name: [email or web address]
--- NOTE | 2019-04-10 12:31 | RADIOLOGY REPORT (SQ) ---
EXAM DESCRIPTION: CHEST SINGLE VIEW COMPLETED DATE/TIME: 04/10/2019 12:21 pm REASON FOR STUDY: lt cp COMPARISON: 08/03/2014 EXAM PARAMETERS: NUMBER OF VIEWS: One view. TECHNIQUE: Single frontal radiographic view of the chest acquired. RADIATION DOSE: NA LIMITATIONS: None. FINDINGS: LUNGS AND PLEURA: No opacities, masses or pneumothorax. No pleural effusion. MEDIASTINUM AND HILAR STRUCTURES: No masses. Contour normal. HEART AND VASCULAR STRUCTURES: Heart normal in size. Normal vasculature. BONES: No acute findings. HARDWARE: None in the chest. OTHER: No other significant finding. IMPRESSION: NO ACUTE RADIOGRAPHIC FINDING IN THE CHEST. TECHNICAL DOCUMENTATION: JOB ID: [id number] [employer]- All Rights Reserved Reading location - IP/workstation name: [email or web address]
[2019-04-10 12:37] LABS: APPEARANCE,URINE SLIGHTLY-CLOUDY; BILIRUBIN,URINE NEGATIVE (NEGATIVE); COLOR,URINE YELLOW; GLUCOSE, URINE NEGATIVE (NEGATIVE); KETONES,URINE NEGATIVE (NEGATIVE); LEUKOCYTE ESTERASE,URINE NEGATIVE (NEGATIVE); NITRITE,URINE NEGATIVE (NEGATIVE); PROTEIN,URINE NEGATIVE (NEGATIVE); URINE SPECIFIC GRAVITY 1.017; UROBILINOGEN,URINE NEGATIVE mg/dL (<2.0)
[2019-04-10 12:42] LABS: INTERNATIONAL RATION (INR) 1.01; PROTHROMBIN TIME 13.8 SEC (11.4-15.4)
[2019-04-10 12:51] LABS: ALANINE AMINOTRANSFERASE 28 U/L (9-52); ALBUMIN 4.6 g/dL (3.5-5.0); ALKALINE PHOSPHATASE 59 U/L (38-126); ANION GAP 11 (5-19); ASPARTATE AMINO TRANSFERASE 23 U/L (14-36); BILIRUBIN,DIRECT 0.2 mg/dL (0.0-0.4); BILIRUBIN,TOTAL 0.6 mg/dL (0.2-1.3); BLOOD UREA NITROGEN 11 mg/dL (7-20); CALCIUM 9.7 mg/dL (8.4-10.2); CARBON DIOXIDE 26 mmol/L (22-30); CHLORIDE 107 mmol/L (98-107); GLUCOSE 95 mg/dL (75-110); POTASSIUM 4.1 mmol/L (3.6-5.0); SODIUM 144.1 mmol/L (137-145); TOTAL PROTEIN 7.4 g/dL (6.3-8.2)
[2019-04-10 12:52] LABS: URINE AMPHETAMINES SCREEN UNCONFIRMED POSITIVE; URINE BARBITURATES SCREEN NEGATIVE; URINE BENZODIAZEPINES SCREEN UNCONFIRMED POSITIVE; URINE COCAINE SCREEN NEGATIVE; URINE MARIJUANA (THC) SCREEN NEGATIVE; URINE METHADONE SCREEN NEGATIVE; URINE PHENCYCLIDINE SCREEN NEGATIVE
[2019-04-10 12:52] LABS: ACETAMINOPHEN < 10 ug/mL (10-30); ALCOHOL < 10 mg/dL (NONE DETECTED); SALICYLATE < 1.0 mg/dL (2.0-20.0)
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
== END 2019-04-10 14:43 | disposition home or self-care (01) ==
LOC: ER 11:18
DX: R55 Syncope and collapse (principal); F41.1 Generalized anxiety disorder; F43.0 Acute stress reaction; F43.10 Post-traumatic stress disorder, unspecified; R51 Headache; Z88.6 Allergy status to analgesic agent; Z88.0 Allergy status to penicillin; Z90.710 Acquired absence of both cervix and uterus
CPT/HCPCS: 36415; 70450; 71045; 80053; 80307; 81001; 84484; 84703; 85025; 85610; 99284